=== PATIENT | female | born 1995 | race Caucasian/White ===

== ENCOUNTER 2020-12-22 16:56 | Emergency (ER) | payer OTHER ==
[2020-12-22 17:05] VITALS: RESP 16; TEMP 99.1
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
[2020-12-22 18:06] VITALS: BP 114/76; PULSE 93
== END 2020-12-22 18:04 | disposition home or self-care (01) ==
LOC: EC 16:56
DX: T58.91XA Toxic effect of carbon monoxide from unspecified source, accidental (unintentional), initial encounter (principal); Z88.8 Allergy status to other drugs, medicaments and biological substances; Z88.0 Allergy status to penicillin
CPT/HCPCS: 81025; 82375; 99284

== ENCOUNTER 2021-01-04 14:03 | Emergency (ER) | payer OTHER ==
[2021-01-04 14:09] VITALS: TEMP 98.6
--- NOTE | 2021-01-04 14:50 | ED ---
General Adult HPI - General Chief complaint: Vaginal Bleeding Stated complaint: Vaginal pain Time Seen by Provider: 01/04/21 14:09 Source: patient, RN notes reviewed Mode of arrival: ambulatory Limitations: no limitations - History of Present Illness Initial comments: 25-year-old female with a past medical history of syncope, gastroparesis, borderline personality disorder presents to the emergency room for a chief complaint of vaginal pain. Patient states that she had sexual intercourse with a new partner 2 weeks ago. States that for the past week she has had pain in the vaginal canal. States that it feels like razor blades. States that it hurts worse when she urinates. Patient denies any pubic or abdominal pain. Denies fevers or chills. Patient states she does not have any concern for STDs. She denies any vaginal discharge or foul odor.patient states she has had this pain several times before the last for a few days after sexual usually resolves. This time is different because it is not resolving. patient also concerned she could be . States she has an IUD and has not had a period for 2 years however she had a drain she was and her dreams are usually accurate. Patient has no other complaints at this time including shortness of breath, chest pain, abdominal pain, nausea or vomiting, headache, or visual changes. - Related Data Allergies Allergy/AdvReac Type Severity Reaction Status Date / Time lamotrigine [From Lamictal] Allergy Anaphylaxis Verified 01/04/21 14:09 Penicillins AdvReac Nausea & Verified 01/04/21 14:09 Vomiting prednisone AdvReac Unknown Verified 01/04/21 14:09 Review of Systems ROS Statement: Those systems with pertinent positive or pertinent negative responses have been documented in the HPI. ROS Other: All systems not noted in ROS Statement are negative. Past Medical History Past Medical History: Syncope Additional Past Medical History / Comment(s): gastroparesis, borderline personality disorder History of Any Multi-Drug Resistant Organisms: None Reported Past Surgical History: Cholecystectomy Past Psychological History: Anxiety, Depression Smoking Status: Never smoker Past Alcohol Use History: Rare Past Drug Use History: None Reported General Exam Limitations: no limitations General appearance: alert, in no apparent distress Head exam: Present: atraumatic, normocephalic, normal inspection Eye exam: Present: normal appearance, PERRL, EOMI. Absent: scleral icterus, conjunctival injection, periorbital swelling ENT exam: Present: normal exam, mucous membranes moist Neck exam: Present: normal inspection, full ROM Respiratory exam: Present: normal lung sounds bilaterally. Absent: respiratory distress, wheezes, rales, rhonchi, stridor Cardiovascular Exam: Present: regular rate, normal rhythm, normal heart sounds. Absent: systolic murmur, diastolic murmur, rubs, gallop, clicks GI/Abdominal exam: Present: soft, normal bowel sounds. Absent: distended, tenderness, guarding, rebound, rigid External exam: Present: normal external exam. Absent: erythema, swelling, lesions, lacerations, ecchymosis Speculum exam: Present: cervical discharge (minimal mucousy cervical discharge), other (IUD strings in place, mild pain with speculum insertion). Absent: erythema, vaginal discharge, vaginal bleeding, foreign body, tissue, laceration By manual exam: Present: normal by manual exam. Absent: cervical motion tenderness, adnexal tenderness, adnexal mass, uterine enlargement, uterine tenderness Course Vital Signs 01/04/21 14:03 Temperature 98.6 F Pulse Rate 103 H Respiratory 20 Rate Blood Pressure 133/81 O2 Sat by Pulse 96 Oximetry Medical Decision Making - Medical Decision Making Vitals are stable. HPI and physical exam as documented. Urinalysis unremarkable. HCG is negative. Trichomonas negative. Patient does not want empiric treatment for STDs at this time because she is not concerned about she could have these. I did discuss that we will not get results back for at least 2 days which she prefers to wait. At this time we will wait for culture results and have her follow up with [facility] [employer] [facility]. If symptoms worsen she will return to the emergency room for further evaluation. - Lab Data Lab Results 01/04/21 01/04/21 01/04/21 Range/Units 14:46 14:46 14:48 Urine Color Yellow Urine Appearance Cloudy H (Clear) Urine pH 6.0 (5.0-8.0) Ur Specific [place] 1.024 (1.001-1.035) Urine Protein Negative (Negative) Urine Glucose (UA) Negative (Negative) Urine Ketones Negative (Negative) Urine Blood Negative (Negative) Urine Nitrite Negative (Negative) Urine Bilirubin Negative (Negative) Urine Urobilinogen <2.0 (<2.0) mg/dL Ur Leukocyte Esterase Small H (Negative) Urine WBC 5 (0-5) /hpf Ur Squamous Epith Cells 4 (0-4) /hpf Urine Bacteria Occasional H (None) /hpf Urine Mucus Occasional H (None) /hpf Urine HCG, Qual Not Detected (Not Detectd) Trichomonas Ag (Rapid) Negative (Negative) Disposition Clinical Impression: Dyspareunia Disposition: HOME SELF-CARE Condition: Good Instructions (If sedation given, give patient instructions): Pelvic Pain in Women (ED) Additional Instructions: Please follow up on culture results. If symptoms worsen, you develop fevers, or any other concerns return immediately to the emergency room. Otherwise try to follow up with [employer] [employer] [facility]. Is patient prescribed a controlled substance at d/c from ED?: No Referrals: Kaatrina Deras MD [Primary Care Provider] - 1-2 days Time of Disposition: 15:53
[2021-01-04 14:57] LABS: Appearance,Urine Cloudy (Clear); Bacteria,Urine Occasional /hpf; Bilirubin,Urine Negative (Negative); Blood,Urine Negative (Negative); Color,Urine Yellow; Glucose,Urine (UA) Negative (Negative); Ketones,Urine Negative (Negative); Leukocyte Esterase,Urine Small (Negative); Mucus,Urine Occasional /hpf; Nitrite,Urine Negative (Negative); Protein,Urine Negative (Negative); Specific Gravity,Urine 1.024 (1.001-1.035); Squamous Epithelial Cell,Urine 4 /hpf (0-4); Urobilinogen,Urine <2.0 mg/dL (<2.0); WBC,Urine 5 /hpf (0-5)
[2021-01-04] MEDS ORDERED: ACETAMINOPHEN TAB 500 MG TAB PO STA (15:52)
[2021-01-04 16:25] VITALS: BP 125/78; PULSE 90; RESP 18
[2021-01-05 15:13] LABS: C. trachomatis,PCR Negative (Neg,Equiv); Chlamydia trachomatis Source Vagina; N. gonorrhoeae,PCR Negative (Neg,Equiv); Neisseria Source Vagina
== END 2021-01-04 16:25 | disposition home or self-care (01) ==
LOC: EC 14:03
DX: N94.10 Unspecified dyspareunia (principal); F32.9 Major depressive disorder, single episode, unspecified; Z90.49 Acquired absence of other specified parts of digestive tract
CPT/HCPCS: 81001; 81025; 87070; 87491; 87591; 87808; 99283

== ENCOUNTER 2021-01-11 15:47 | Emergency (ER) | payer OTHER ==
[2021-01-11 16:00] VITALS: BP 128/80; PULSE 98; RESP 18; TEMP 98.2
--- NOTE | 2021-01-11 16:45 | XR ---
EXAMINATION TYPE: XR chest 2V DATE OF EXAM: 01/11/2021 COMPARISON: NONE HISTORY: Syncope and weakness. TECHNIQUE: Frontal and lateral views of the chest are obtained. FINDINGS: Somewhat low lung volumes. There is no focal air space opacity, pleural effusion, or pneumo thorax seen. The cardiac silhouette size is within normal limits. The osseous structures are intac t. Cholecystectomy clips noted on lateral view. IMPRESSION: No acute cardiopulmonary process.
--- NOTE | 2021-01-11 16:45 | XR ---
EXAMINATION TYPE: XR lumbar spine 2 or 3V DATE OF EXAM: 01/11/2021 CLINICAL HISTORY: Fall injury with pain TECHNIQUE: Frontal and lateral images of the lumbar spine are obtained. COMPARISON: None FINDINGS: There are 5 lumbar type vertebral bodies identified. The lumbar spine shows satisfactory alignment without evidence of acute fracture or dislocation. Vertebral body heights and disk space he ights are within normal limits. Metallic IUD partially imaged in the pelvis. IMPRESSION: No acute fracture or dislocation is seen in the lumbar spine.
[2021-01-11] MEDS ORDERED: ACET/COD 300 MG/30 MG STARTER PACK 6 TAB BTL PO STA (17:21)
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
== END 2021-01-11 17:55 | disposition home or self-care (01) ==
LOC: EC 15:47
DX: M54.5 Low back pain (principal); R55 Syncope and collapse; Z90.49 Acquired absence of other specified parts of digestive tract; F32.9 Major depressive disorder, single episode, unspecified; W18.2XXA Fall in (into) shower or empty bathtub, initial encounter; Y93.E1 Activity, personal bathing and showering
CPT/HCPCS: 71046; 72100; 81025; 93005; 99284

== ENCOUNTER 2021-01-12 14:17 | Emergency (ER) | payer OTHER ==
[2021-01-12 14:32] VITALS: RESP 18
[2021-01-12] MEDS ORDERED: SODIUM CHLORIDE 0.9% 1,000 ML IV STA (15:15)
--- NOTE | 2021-01-12 15:28 | ED ---
General Adult HPI - General Chief complaint: Syncope Stated complaint: Dizziness, Passed out Time Seen by Provider: 01/12/21 15:14 Source: patient, RN notes reviewed Mode of arrival: wheelchair Limitations: no limitations - History of Present Illness Initial comments: Patient is a 25-year-old female presents to emergency department status post syncopal episode. She noted that she has a history of this for about the past 6 years. She did note that when she fainted she had a upon arrival hitting her right shoulder and her head. She notes that she does have some shoulder pain currently that is moderate. She she did note that she does follow-up with referral to see her primary care regularly. She states that she only drank 3 glasses of water this morning. She was in no apparent distress or pain while sitting in exam. She denied any chest pain shortness of breath headache nausea vomiting diarrhea constipation fever fatigue chills weakness numbness tingling decreased range of motion or strength in any extremity. - Related Data Allergies Allergy/AdvReac Type Severity Reaction Status Date / Time lamotrigine [From Lamictal] Allergy Anaphylaxis Verified 01/12/21 14:32 Penicillins AdvReac Nausea & Verified 01/12/21 14:32 Vomiting prednisone AdvReac Unknown Verified 01/12/21 14:32 Review of Systems ROS Statement: Those systems with pertinent positive or pertinent negative responses have been documented in the HPI. ROS Other: All systems not noted in ROS Statement are negative. Past Medical History Past Medical History: Syncope Additional Past Medical History / Comment(s): gastroparesis, borderline personality disorder, History of Any Multi-Drug Resistant Organisms: None Reported Past Surgical History: Cholecystectomy Past Psychological History: Anxiety, Depression Smoking Status: Never smoker Past Alcohol Use History: Rare Past Drug Use History: None Reported General Exam Limitations: no limitations General appearance: alert, in no apparent distress, obese Head exam: Present: atraumatic, normocephalic, normal inspection Eye exam: Present: normal appearance, PERRL, EOMI. Absent: scleral icterus, conjunctival injection, periorbital swelling ENT exam: Present: normal exam, mucous membranes moist Neck exam: Present: normal inspection. Absent: tenderness, meningismus, lymphadenopathy Respiratory exam: Present: normal lung sounds bilaterally. Absent: respiratory distress, wheezes, rales, rhonchi, stridor Cardiovascular Exam: Present: regular rate, normal rhythm, normal heart sounds. Absent: systolic murmur, diastolic murmur, rubs, gallop, clicks GI/Abdominal exam: Present: soft, normal bowel sounds. Absent: distended, tenderness, guarding, rebound, rigid Extremities exam: Present: normal inspection, full ROM, normal capillary refill. Absent: tenderness, pedal edema, joint swelling, calf tenderness Neurological exam: Present: alert, oriented X3, CN II-XII intact Psychiatric exam: Present: normal affect, normal mood Skin exam: Present: warm, dry, intact, normal color. Absent: rash Course Vital Signs 01/12/21 01/12/21 14:30 14:32 Temperature 98.3 F Pulse Rate 114 H Respiratory 16 18 Rate Blood Pressure 115/77 O2 Sat by Pulse 96 Oximetry EKG Findings - EKG Comments: EKG Findings:: Ventricular rate 102 bpm, IL interval on 148 ms, QRS duration 92 ms, QT/QTc 348/452 ms, PareT axes 55/18/5. Sinus tachycardia, nonspecific ST abnormality, abnormal ECG. Medical Decision Making - Medical Decision Making 25-year-old female status post syncopal episode with injury to her right shoulder and hitting her head. Chest x-ray, right upper shoulder x-ray, CT of the brain, labs, EKG, cardiac care nurse, orthostatic blood pressure, 1 L normal saline ordered. Labs unremarkable. Radiology studies negative for any fracture or abnormalities. Case discussed with Dr. Caballero, decided patient could discharge home with conservative management and close follow-up with neurology and primary care. - Lab Data Result diagrams: 01/12/21 15:36 01/12/21 15:36 Lab Results 01/12/21 01/12/21 01/12/21 Range/Units 15:36 15:36 15:36 WBC 7.2 (3.8-10.6) k/uL RBC 4.53 (3.80-5.40) m/uL Hgb 13.1 (11.4-16.0) gm/dL Hct 37.7 (34.0-46.0) % MCV 83.3 (80.0-100.0) fL MCH 28.9 (25.0-35.0) pg MCHC 34.7 (31.0-37.0) g/dL RDW 12.9 (11.5-15.5) % Plt Count 271 (150-450) k/uL MPV 6.6 Neutrophils % 60 % Lymphocytes % 28 % Monocytes % 5 % Eosinophils % 5 % Basophils % 1 % Neutrophils # 4.3 (1.3-7.7) k/uL Lymphocytes # 2.0 (1.0-4.8) k/uL Monocytes # 0.3 (0-1.0) k/uL Eosinophils # 0.4 (0-0.7) k/uL Basophils # 0.1 (0-0.2) k/uL PT 10.3 (9.0-12.0) sec INR 1.0 (<1.2) APTT 23.9 (22.0-30.0) sec Sodium 139 (137-145) mmol/L Potassium 3.9 (3.5-5.1) mmol/L Chloride 106 (98-107) mmol/L Carbon Dioxide 26 (22-30) mmol/L Anion Gap 7 mmol/L BUN 15 (7-17) mg/dL Creatinine 0.89 (0.52-1.04) mg/dL Est GFR (CKD-EPI)AfAm >90 (>60 ml/min/1.73 sqM) Est GFR (CKD-EPI)NonAf >90 (>60 ml/min/1.73 sqM) Glucose 91 (74-99) mg/dL Calcium 9.2 (8.4-10.2) mg/dL Total Bilirubin 0.3 (0.2-1.3) mg/dL AST 29 (14-36) U/L ALT 27 (4-34) U/L Alkaline Phosphatase 99 (38-126) U/L Troponin I (0.000-0.034) ng/mL Total Protein 6.6 (6.3-8.2) g/dL Albumin 3.8 (3.5-5.0) g/dL Urine Color Urine Appearance (Clear) Urine pH (5.0-8.0) Ur Specific [place] (1.001-1.035) Urine Protein (Negative) Urine Glucose (UA) (Negative) Urine Ketones (Negative) Urine Blood (Negative) Urine Nitrite (Negative) Urine Bilirubin (Negative) Urine Urobilinogen (<2.0) mg/dL Ur Leukocyte Esterase (Negative) Urine RBC (0-5) /hpf Urine WBC (0-5) /hpf Ur Squamous Epith Cells (0-4) /hpf Urine Bacteria (None) /hpf Urine Mucus (None) /hpf Urine HCG, Qual (Not Detectd) 01/12/21 01/12/21 01/12/21 Range/Units 15:36 15:36 15:41 WBC (3.8-10.6) k/uL RBC (3.80-5.40) m/uL Hgb (11.4-16.0) gm/dL Hct (34.0-46.0) % MCV (80.0-100.0) fL MCH (25.0-35.0) pg MCHC (31.0-37.0) g/dL RDW (11.5-15.5) % Plt Count (150-450) k/uL MPV Neutrophils % % Lymphocytes % % Monocytes % % Eosinophils % % Basophils % % Neutrophils # (1.3-7.7) k/uL Lymphocytes # (1.0-4.8) k/uL Monocytes # (0-1.0) k/uL Eosinophils # (0-0.7) k/uL Basophils # (0-0.2) k/uL PT (9.0-12.0) sec INR (<1.2) APTT (22.0-30.0) sec Sodium (137-145) mmol/L Potassium (3.5-5.1) mmol/L Chloride (98-107) mmol/L Carbon Dioxide (22-30) mmol/L Anion Gap mmol/L BUN (7-17) mg/dL Creatinine (0.52-1.04) mg/dL Est GFR (CKD-EPI)AfAm (>60 ml/min/1.73 sqM) Est GFR (CKD-EPI)NonAf (>60 ml/min/1.73 sqM) Glucose (74-99) mg/dL Calcium (8.4-10.2) mg/dL Total Bilirubin (0.2-1.3) mg/dL AST (14-36) U/L ALT (4-34) U/L Alkaline Phosphatase (38-126) U/L Troponin I <0.012 (0.000-0.034) ng/mL Total Protein (6.3-8.2) g/dL Albumin (3.5-5.0) g/dL Urine Color Yellow Urine Appearance Clear (Clear) Urine pH 6.0 (5.0-8.0) Ur Specific [place] 1.027 (1.001-1.035) Urine Protein Negative (Negative) Urine Glucose (UA) Negative (Negative) Urine Ketones Negative (Negative) Urine Blood Negative (Negative) Urine Nitrite Negative (Negative) Urine Bilirubin Negative (Negative) Urine Urobilinogen <2.0 (<2.0) mg/dL Ur Leukocyte Esterase Small H (Negative) Urine RBC 1 (0-5) /hpf Urine WBC 2 (0-5) /hpf Ur Squamous Epith Cells 3 (0-4) /hpf Urine Bacteria Rare H (None) /hpf Urine Mucus Few H (None) /hpf Urine HCG, Qual Not Detected (Not Detectd) - EKG Data -: EKG Interpreted by Me EKG shows normal: sinus rhythm Rate: tachycardia EKG Comments: Ventricular rate 102 bpm, IL interval on 148 ms, QRS duration 92 ms, QT/QTc 348/452 ms, PareT axes 55/18/5. Sinus tachycardia, nonspecific ST abnormality, abnormal ECG. - Radiology Data Radiology results: report reviewed, image reviewed Shoulder x-ray: There is no acute fracture dislocation of the right shoulder. Chest x-ray: Low lung volumes without acute pulmonary process. Brain CT: No acute intracranial hemorrhage or midline shift seen. Disposition Clinical Impression: Syncope, Fall, Right shoulder pain Disposition: HOME SELF-CARE Condition: Stable Instructions (If sedation given, give patient instructions): Syncope (ED) Additional Instructions: Please return to the Emergency Department if symptoms worsen or any other blair rns. Follow-up primary care in 2-4 days, follow-up with neurology as well. Increase oral fluid hydration due to possibly being dehydrated. Is patient prescribed a controlled substance at d/c from ED?: No Referrals: Katarina Deras MD [Primary Care Provider] - 1-2 days Time of Disposition: 16:58
[2021-01-12 15:49] LABS: Appearance,Urine Clear (Clear); Bacteria,Urine Rare /hpf; Bilirubin,Urine Negative (Negative); Blood,Urine Negative (Negative); Color,Urine Yellow; Glucose,Urine (UA) Negative (Negative); Ketones,Urine Negative (Negative); Leukocyte Esterase,Urine Small (Negative); Mucus,Urine Few /hpf; Nitrite,Urine Negative (Negative); Protein,Urine Negative (Negative); RBC,Urine 1 /hpf (0-5); Specific Gravity,Urine 1.027 (1.001-1.035); Squamous Epithelial Cell,Urine 3 /hpf (0-4); Urobilinogen,Urine <2.0 mg/dL (<2.0); WBC,Urine 2 /hpf (0-5)
[2021-01-12 16:01] LABS: Basophils # (A) 0.1 k/uL (0-0.2); Basophils % (A) 1 %; Eosinophils # (A) 0.4 k/uL (0-0.7); Eosinophils % (A) 5 %; HCT 37.7 % (34.0-46.0); HGB 13.1 gm/dL (11.4-16.0); Lymphocytes % (A) 28 %; MCH 28.9 pg (25.0-35.0); MCHC 34.7 g/dL (31.0-37.0); MCV 83.3 fL (80.0-100.0); Mean Platelet Volume 6.6; Monocytes # (A) 0.3 k/uL (0-1.0); Monocytes % (A) 5 %; Neutrophils # (A) 4.3 k/uL (1.3-7.7); Neutrophils % (A) 60 %; Platelet Count 271 k/uL (150-450); RBC 4.53 m/uL (3.80-5.40); RDW 12.9 % (11.5-15.5); WBC 7.2 k/uL (3.8-10.6)
[2021-01-12 16:09] LABS: ALT 27 U/L (4-34); AST 29 U/L (14-36); African American GFR (CKD) >90 (>60 ml/min/1.73 sqM); Albumin 3.8 g/dL (3.5-5.0); Alkaline Phosphatase 99 U/L (38-126); Anion Gap 7 mmol/L; Blood Urea Nitrogen 15 mg/dL (7-17); Calcium 9.2 mg/dL (8.4-10.2); Carbon Dioxide 26 mmol/L (22-30); Chloride 106 mmol/L (98-107); Glucose 91 mg/dL (74-99); Non-African American GFR(CKD) >90 (>60 ml/min/1.73 sqM); Potassium 3.9 mmol/L (3.5-5.1); Sodium 139 mmol/L (137-145); Total Bilirubin 0.3 mg/dL (0.2-1.3); Total Protein 6.6 g/dL (6.3-8.2)
[2021-01-12 16:16] LABS: Partial Thromboplastin Time 23.9 sec (22.0-30.0); Prothrombin Time 10.3 sec (9.0-12.0)
--- NOTE | 2021-01-12 16:16 | CT ---
EXAMINATION TYPE: CT brain wo con DATE OF EXAM: 01/12/2021 COMPARISON: None. HISTORY: multiple syncopal episodes, hit head during most recent, headache, dizziness CT DLP: 1094.4 mGycm. Automated Exposure Control for Dose Reduction was Utilized. TECHNIQUE: CT scan of the head is performed without contrast. FINDINGS: There is no acute intracranial hemorrhage, mass effect, or midline shift identified. The ventricles and sulci are within normal limits in size. The globes are intact and the visualized sin uses are clear. The calvarium is intact. IMPRESSION: No acute intracranial hemorrhage or midline shift is seen.
--- NOTE | 2021-01-12 16:18 | XR ---
EXAMINATION TYPE: XR chest 2V DATE OF EXAM: 01/12/2021 COMPARISON: Chest x-ray from yesterday. HISTORY: Syncope and weakness. TECHNIQUE: Frontal and lateral views of the chest are obtained. FINDINGS: Somewhat low lung volumes are redemonstrated. There is no suspicious new focal air space op acity, pleural effusion, or pneumothorax seen bilaterally. The cardiac silhouette size is stable and upper limits of normal. Overlying EKG leads noted on current study. The osseous structures are int act. Cholecystectomy clips redemonstrated on lateral view. IMPRESSION: Low lung volumes without acute pulmonary process.
--- NOTE | 2021-01-12 16:19 | XR ---
EXAMINATION TYPE: XR shoulder complete RT DATE OF EXAM: 01/12/2021 CLINICAL HISTORY: Pain after fall injury. TECHNIQUE: Three views of the right shoulder are obtained. COMPARISON: None. FINDINGS: There is no acute fracture/dislocation evident in the right shoulder. The acromioclavicul ar and glenohumeral joint spaces appear within normal limits. The visualized ribs are intact and unr emarkable. IMPRESSION: There is no acute fracture or dislocation in the right shoulder.
[2021-01-12 17:30] VITALS: BP 122/78; PULSE 77; TEMP 98.2
== END 2021-01-12 17:19 | disposition home or self-care (01) ==
LOC: EC 14:17
DX: R55 Syncope and collapse (principal); M25.512 Pain in left shoulder; Z88.0 Allergy status to penicillin; Z88.8 Allergy status to other drugs, medicaments and biological substances; Z90.49 Acquired absence of other specified parts of digestive tract
CPT/HCPCS: 36415; 70450; 71046; 80053; 81001; 81025; 84484; 85025; 85610; 85730; 93005; 96360; 99284

== ENCOUNTER → 2022-08-22 | Outpatient (CLI) | payer OTHER ==
--- NOTE | 2022-08-22 08:16 | USB ---
Reason for Exam: Clinical finding. Indicated Problems: Pain of the left side (Focal) for 2 Month(s) : Intermittent. Palpable abnormality of both sides. Findings: The whole breast of both breasts and the axilla of both breasts were scanned. A complete US of all four quadrants of the breast, axilla, retro-areolar region were reviewed. No solid or cystic masses are identified.. No axillary lymphadenopathy. Dense bands of tissue are present on a background of fatty density. Overall Assessment: Negative, BI-RAD 1 Management: Screening Mammogram of both breasts at age 42. If any persistent suspicious palpable abnormality develops, the patient can be rescanned. Otherwise, routine annual screening mammograms at 40 years of age unless there is an indication to start sooner. Patient should continue monthly self breast exams.??Also, further clinical management of left breast pain. Results were given to the patient verbally at the time of exam. Electronically signed and approved by: Demetrice Villegas M.D. Radiologist
== END | disposition home or self-care (01) ==
LOC: RADUSWWP 07:23
PROVIDERS: ATTEND Family Medicine
DX: N64.4 Mastodynia (principal)